=== PATIENT | female | born 1970 | race Caucasian/White ===

== ENCOUNTER 2016-11-18 18:10 | Emergency (ER) | payer OTHER ==
[~2016-11-18] VITALS: Ht 162.6 cm; Wt 116.2 kg
[~2016-11-18 18:10] MED LIST: CLR10 PO; HYDR12.56 PO; LISI-461 PO
[2016-11-18 18:13] VITALS: TEMP 36.9; Ht 162.6 cm; Wt 116.2 kg
[2016-11-18] MEDS ORDERED: PRVHFAIN INH (19:24)
[2016-11-18] MEDS ORDERED: ONDANSETRON INJ 2 MG/ML 2 ML VIAL IV STA (20:30)
[2016-11-18] MEDS ORDERED: SODIUM CHLORIDE 0.9% 1000ML 1,000 ML IV STA (20:30)
[2016-11-18 20:39] LABS: BASO % 0.1 %; BASO ABS # 0.01 K/uL (0-0.2); COMPLETE YES; EOS % 0.6 %; HEMATOCRIT 39.9 % (37-47); IG% 0.5 %; LYMPH ABS # 1.06 K/uL (1.2-3.4); MEAN CELL VOLUME 85.3 fL (80-100); MEAN CORPUSCULAR HEMOGLOBIN 28.8 pg (25-34); MEAN CORPUSCULAR HGB CONC 33.8 g/dl (32-36); MEAN PLATELET VOLUME 10.9 fL (7.4-10.4); MONO % 6.9 %; NEUT % 79.9 %; PLATELET COUNT 275 K/uL (130-400); RED BLOOD COUNT 4.68 M/uL (4.2-5.4); WHITE BLOOD COUNT 8.85 K/uL (4.8-10.8)
[2016-11-18 20:45] LABS: URINE APPEARANCE CLOUDY (CLEAR); URINE BILIRUBIN NEG (NEG); URINE COLOR DK YELLOW; URINE EPITHELIAL CELL AUTO >30 /lpf (0-5); URINE NITRITE NEG (NEG); URINE PH 6.5 (4.5-7.5); URINE SPECIFIC GRAVITY 1.027 (1.000-1.030); UROBILINOGEN NEG (NEG); ZZUR CULT IF INDIC CLEAN CATCH YES
[2016-11-18 20:46] LABS: PREG INTERNAL NEGATIVE QC NEG CLEAR BACKGROUND; PREG INTERNAL POSITIVE QC POS CONTROL LINE
[2016-11-18 20:47] LABS: MANUAL MICROSCOPIC REQUIRED? NO; REVIEW REQ? NO
[2016-11-18 21:11] LABS: BUN/CREATININE RATIO 24.9 (10-20); CALCIUM 8.4 mg/dl (8.5-10.1); CREATININE 0.74 mg/dl (0.60-1.20); POTASSIUM 3.3 mmol/L (3.5-5.1)
--- NOTE | 2016-11-18 21:41 | EMERGENCY ROOM VISIT NOTE ---
History Report prepared by Tereso: Flynn Mitchell Under the Supervision of: Dr. Corky Barrera D.O. First contact with patient: 19:10 Chief Complaint: DIZZY Stated Complaint: VOMITING, DIARRHEA, DIZZY Nursing Triage Summary: PT C/O VOMITING/DIARRHEA SINCE 0000 LAST NIGHT. PT VERBALIZES THE VOMITING/DIARRHEA STOPPED 3 HOURS AGO BUT NOW SHE FEELS LIGHTHEADED, DIZZY, AND HAS CRAMPING IN HER BACK. History of Present Illness The patient is a 46 year old female who presents to the Emergency Room with complaints of a persistent illness beginning yesterday. She notes she began feeling dizzy yesterday and began having vomiting and diarrhea around midnight. She notes she was vomiting about 1 time per hour, and that it has stopped about 5 hours ago. The patient reports having a headache, and abdominal and back pain which she describes as tight and achy. She notes having allergies and hypertension. She takes blood pressure medication daily. Source of History: patient Onset: yesterday Position: other (global) Quality: other (illness) Timing: other (persistent) Associated Symptoms: + abdominal pain, + back pain, + diarrhea, + vomiting Note: The patient reports having dizziness. Review of Systems See HPI for pertinent positives & negatives. A total of 10 systems reviewed and were otherwise negative. Past Medical & Surgical Medical Problems: (1) UTI (lower urinary tract infection) Family History No pertinent family history stated. Social History Smoking Status: Former Smoker Alcohol Use: none Drug Use: none Marital Status: Housing Status: lives with family Occupation Status: employed Current/Historical Medications Scheduled Hydrochlorothiazide (Hctz), 12.5 MG PO DAILY Lisinopril (Zestril), 10 MG PO DAILY Scheduled PRN Albuterol (Ventolin Hfa), 2 PUFFS INH UD PRN for SOB/Wheezing Allergies Coded Allergies: Dairy (Unverified Allergy, Unknown, UNKNOWN, 05/01/16) Yeast (Unverified Allergy, Unknown, UNKNOWN, 05/01/16) Yeast Extracts (Unverified Allergy, Unknown, UNKNOWN, 05/01/16) Physical Exam Vital Signs Date Time Temp Pulse Resp B/P Pulse Ox O2 Delivery O2 Flow Rate FiO2 11/18/16 20:27 93 11/18/16 20:17 92 18 124/66 99 Room Air 11/18/16 18:13 36.9 103 20 144/91 97 Room Air Physical Exam CONSTITUTIONAL/VITAL SIGNS: Reviewed / noted above. GENERAL: Non-toxic in appearance. INTEGUMENTARY: Warm, dry, and [place]. HEAD: Normocephalic. EYES: without scleral icterus or trauma. ENT/OROPHARYNX: clear and moist. LYMPHADENOPATHY/NECK: Is supple without lymphadenopathy or meningismus. RESPIRATORY: Lungs clear and equal. CARDIOVASCULAR: Regular rate and rhythm. GI/ABDOMEN: Soft and nontender. No organomegaly or pulsatile mass. No rebound or guarding. Normal bowel sounds. EXTREMITIES: Warm and well perfused. BACK: No CVA tenderness. NEUROLOGICAL: Intact without focal deficits. PSYCHIATRIC: normal affect. MUSCULOSKELETAL: Normally developed with good muscle tone. Medical Decision & Procedures Laboratory Results 11/18/16 19:55 Red Blood Count 4.68, Mean Corpuscular Volume 85.3, Mean Corpuscular Hemoglobin 28.8, Mean Corpuscular Hemoglobin Concent 33.8, Mean Platelet Volume 10.9, Neutrophils (%) (Auto) 79.9, Lymphocytes (%) (Auto) 12.0, Monocytes (%) (Auto) 6.9, Eosinophils (%) (Auto) 0.6, Basophils (%) (Auto) 0.1, Neutrophils # (Auto) 7.08, Lymphocytes # (Auto) 1.06, Monocytes # (Auto) 0.61, Eosinophils # (Auto) 0.05, Basophils # (Auto) 0.01 11/18/16 19:55 Test 11/18/16 19:55 11/18/16 20:00 White Blood Count 8.85 K/uL (4.8-10.8) Red Blood Count 4.68 M/uL (4.2-5.4) Hemoglobin 13.5 g/dL (12.0-16.0) Hematocrit 39.9 % (37-47) Mean Corpuscular Volume 85.3 fL (80-100) Mean Corpuscular Hemoglobin 28.8 pg (25-34) Mean Corpuscular Hemoglobin Concent 33.8 g/dl (32-36) Platelet Count 275 K/uL (130-400) Mean Platelet Volume 10.9 fL (7.4-10.4) Neutrophils (%) (Auto) 79.9 % Lymphocytes (%) (Auto) 12.0 % Monocytes (%) (Auto) 6.9 % Eosinophils (%) (Auto) 0.6 % Basophils (%) (Auto) 0.1 % Neutrophils # (Auto) 7.08 K/uL (1.4-6.5) Lymphocytes # (Auto) 1.06 K/uL (1.2-3.4) Monocytes # (Auto) 0.61 K/uL (0.11-0.59) Eosinophils # (Auto) 0.05 K/uL (0-0.5) Basophils # (Auto) 0.01 K/uL (0-0.2) RDW Standard Deviation 42.9 fL (36.4-46.3) RDW Coefficient of Variation 13.9 % (11.5-14.5) Immature Granulocyte % (Auto) 0.5 % Immature Granulocyte # (Auto) 0.04 K/uL (0.00-0.02) Anion Gap 11.0 mmol/L (3-11) Est Creatinine Clear Calc Drug Dose 119.0 ml/min Estimated GFR () 112.6 Estimated GFR (Non- 97.2 BUN/Creatinine Ratio 24.9 (10-20) Calcium Level 8.4 mg/dl (8.5-10.1) Total Bilirubin 0.9 mg/dl (0.2-1) Direct Bilirubin 0.2 mg/dl (0-0.2) Aspartate Amino Transf (AST/SGOT) 12 U/L (15-37) Alanine Aminotransferase (ALT/SGPT) 18 U/L (12-78) Alkaline Phosphatase 83 U/L (45-117) Total Protein 7.2 gm/dl (6.4-8.2) Albumin 3.6 gm/dl (3.4-5.0) Lipase 134 U/L (73-393) Urine Color DK YELLOW Urine Appearance CLOUDY (CLEAR) Urine pH 6.5 (4.5-7.5) Urine Specific [place] 1.027 (1.000-1.030) Urine Protein NEG (NEG) Urine Glucose (UA) NEG (NEG) Urine Ketones 1+ (NEG) Urine Occult Blood NEG (NEG) Urine Nitrite NEG (NEG) Urine Bilirubin NEG (NEG) Urine Urobilinogen NEG (NEG) Urine Leukocyte Esterase NEG (NEG) Urine WBC (Auto) 1-5 /hpf (0-5) Urine RBC (Auto) 0-4 /hpf (0-4) Urine Hyaline Casts (Auto) 1-5 /lpf (0-5) Urine Epithelial Cells (Auto) >30 /lpf (0-5) Urine Bacteria (Auto) 1+ (NEG) Urine Test NEG (NEG) Laboratory results as stated above per my review. Medications Administered Medications (Trade) Dose Ordered Sig/Michele Route Start Time Stop Time Status Last Admin Dose Admin Sodium Chloride (Nss 1000ml) 1,000 ml @ 999 mls/hr Q1H1M STAT IV 11/18/16 20:30 11/18/16 21:30 DC 11/18/16 20:30 999 MLS/HR Ondansetron HCl (Zofran Inj) 4 mg NOW STAT IV 11/18/16 20:30 11/18/16 20:33 DC 11/18/16 20:41 4 MG ED Course 2028: Previous medical records were reviewed. The patient was evaluated in room B3B. A complete history and physical examination was performed. 2029: Ordered Zofran Inj 4 mg IV, and NSS 1,000 ml @ 999 mls/hr IV. 2144: Ordered Ondansetron HCl 1 homepack PO. 2149: On reevaluation, the patient is hemodynamically stable. I discussed the results and findings with the patient. She verbalized agreement of the treatment plan. The patient was discharged home. Medical Decision Differential diagnosis: Etiologies such as gastroenteritis, food borne illness, infections, appendicitis , diverticulitis, inflammatory bowel disease, obstruction, GI bleed, biliary pathology, as well as others were entertained. This is a 46-year-old female who presents to the ED with a chief complaint of nausea, vomiting and diarrhea. She states that her nausea started yesterday. She began vomiting and having diarrhea around midnight. She states that she has had about once an hour. It started around 3 PM today. She felt a little lightheaded and came for evaluation of fluids. The patient was normal on exam. She was treated with IV fluids. Her vital signs are normal. She was treated with Zofran IV. CBC is normal. Potassium slightly low 3.3. Complete metabolic panel was unremarkable. Lipase is negative. Urine shows 1+ ketones. test was negative. The patient was told the results of the tests. sHe was felt to be stable for discharge and outpatient follow-up. She will be given Zofran home pack. Impression Primary Impression: Vomiting and diarrhea Additional Impression: Dehydration Scribe Attestation The scribe's documentation has been prepared under my direction and personally reviewed by me in its entirety. I confirm that the note above accurately reflects all work, treatment, procedures, and medical decision making performed by me. Departure Information Dispostion Home / Self-Care Referrals Samira Tolbert D.O. (PCP) Patient Instructions My [facility] Additional Instructions Zofran: Allow one tablet to dissolve under the tongue every 6 hours as needed for nausea or vomiting. Follow-up with your doctor for further care and evaluation in 1-2 days. Return to the emergency department for worsening or new symptoms or any concerns. You have been examined and treated today on an emergency basis only. This is not a substitute for, or an effort to provide, complete comprehensive medical care. It is impossible to recognize and treat all injuries or illnesses in a single emergency department visit. It is therefore important that you follow up closely with your doctor. Call as soon as possible for an appointment. Problem Qualifiers
[2016-11-18] MEDS ORDERED: ONDANSETRON HOME PACK 4MG OD TAB PO ONE (21:45)
[2016-11-18] MEDS ORDERED: ONDANSETRON INJ 2 MG/ML 2 ML VIAL ONE (22:34)
[2016-11-18 23:11] VITALS: BP 120/77; PULSE 88; O2SAT 100
[2017-01-04] MEDS ORDERED: LANS15CA6 PO (15:53)
== END 2016-11-18 23:12 | disposition home or self-care (01) ==
LOC: C.EDB 18:10
DX: R11.2 Nausea with vomiting, unspecified (principal); R19.7 Diarrhea, unspecified; E86.0 Dehydration; I10 Essential (primary) hypertension; Z87.891 Personal history of nicotine dependence

== ENCOUNTER → 2017-01-04 | Outpatient (CLI) | payer OTHER ==
[~2017-01-04] MED LIST changes: -CLR10 PO; +KETO10TA PO; +LANS15CA6 PO; +OXYC-57 PO; +PRVHFAIN INH
[2017-01-04 15:33] LABS: BASO % 0.3 %; BASO ABS # 0.02 K/uL (0-0.2); COMPLETE YES; EOS % 2.7 %; HEMATOCRIT 40.5 % (37-47); IG% 0.1 %; LYMPH ABS # 2.01 K/uL (1.2-3.4); MEAN CELL VOLUME 84.7 fL (80-100); MEAN CORPUSCULAR HEMOGLOBIN 28.9 pg (25-34); MEAN CORPUSCULAR HGB CONC 34.1 g/dl (32-36); MEAN PLATELET VOLUME 11.2 fL (7.4-10.4); MONO % 5.8 %; NEUT % 65.1 %; PLATELET COUNT 293 K/uL (130-400); RED BLOOD COUNT 4.78 M/uL (4.2-5.4); WHITE BLOOD COUNT 7.74 K/uL (4.8-10.8)
[2017-01-04 16:11] LABS: BLOOD UREA NITROGEN 15 mg/dl (7-18); CALCIUM 8.7 mg/dl (8.5-10.1); CARBON DIOXIDE 28 mmol/L (21-32); CHLORIDE 105 mmol/L (98-107); CREATININE 0.69 mg/dl (0.60-1.20); GLUCOSE 94 mg/dl (70-99); POTASSIUM 3.6 mmol/L (3.5-5.1); SODIUM 141 mmol/L (136-145)
== END | disposition home or self-care (01) ==
LOC: C.CPL 14:12
PROVIDERS: ATTEND Orthopaedic Surgery
DX: Z01.810 Encounter for preprocedural cardiovascular examination (principal); Z01.812 Encounter for preprocedural laboratory examination; M25.512 Pain in left shoulder

== ENCOUNTER 2017-01-06 10:42 | Day surgery (SDC) | payer OTHER ==
[2017-01-04 15:54] VITALS: BMI 43.0
--- NOTE | 2017-01-04 17:19 | HISTORY & PHYSICAL EXAMINATION ---
DATE OF ADMISSION: 01/06/2017 CHIEF COMPLAINT: Left rotator cuff tear. HISTORY OF PRESENT ILLNESS: Christie is a 46-year-old female who has been having a year and a half history of left shoulder pain. MRI and clinical examination were diagnostic for small to medium sized rotator cuff tear. After failing extensive conservative treatment including several injections and physical therapy she has elected to proceed with a left shoulder arthroscopy. PAST MEDICAL HISTORY: Significant for obesity and hypertension. MEDICATIONS: None. PAST SURGICAL HISTORY: Significant for bladder repair. ALLERGIES: None. FAMILY HISTORY: Noncontributory. SOCIAL HISTORY: The patient is , 2 children, rarely drinks, moderately active. REVIEW OF SYSTEMS: The patient complains of left shoulder pain. All other pertinent review of systems are negative. PHYSICAL EXAMINATION: GENERAL: She is awake, alert and oriented x3. She is in no apparent distress. She is very pleasant. HEAD, EYES, EARS, NOSE, AND THROAT: Pupils equal, round and reactive to light. Extraocular movements intact. Normal mucosa pink and moist. HEART: Regular rate per radial pulse. LUNGS: Jaja symmetrically bilaterally with no audible breath sounds. ABDOMEN: Soft, nontender, nondistended. MUSCULOSKELETAL: On physical examination of her shoulder, she has full range of motion, 3/5 muscle strength. She has significant tenderness to palpation over the subacromial space. Moderate pain over the AC joint. Very positive Neer and Figueroa impingement signs. IMAGING DATA: MRI of the shoulder does show a very high-grade bursal sided tearing of the far anterior supraspinatus and signs of external impingement. The humeral head is located within the glenoid as there are no signs of glenohumeral arthritis. There is some AC joint arthritis. IMPRESSION: Severe external impingement of the left shoulder with bursal sided rotator cuff tear and AC joint arthritis. PLAN: Will proceed with a shoulder arthroscopy to include a decompression, distal clavicle resection, biceps tenotomy and possible bursal side rotator cuff repair. She understands all the risks, benefits, alternatives to the procedure and elected to proceed. Postoperatively, she will be placed on oral pain medications and discharged to home.
[~2017-01-06] VITALS: Ht 162.6 cm; Wt 113.6 kg
--- NOTE | 2017-01-06 09:53 | History & Physical Bridge Note ---
H&P Re-Evaluation Bridge Note: I have examined the patient, reviewed the History & Physical and in the interval since the performance of the History & Physical I have noted the following changes of clinical significance: No changes noted
[~2017-01-06 10:42] MED LIST changes: +ACETAMINOPHEN 500 MG TAB PO SCH; +CEFAZOLIN 2000 MG/60 ML D5W 60 ML IV SCH; +FAMOTIDINE 20 MG TAB PO SCH; +FENTANYL CITRATE INJ 50 MCG/1 ML 2 ML VIAL ONE; +GABAPENTIN 300 MG CAP PO SCH; -KETO10TA PO; +LACTATED RINGER'S 1000ML 1,000 ML IV SCH; +LACTATED RINGER'S 1000ML IV SCH; +MIDAZOLAM HCL 1 MG/ML 2ML VIAL ONE; -OXYC-57 PO; +ROPIVACAINE 0.5% 5 MG/ML 30 ML VIAL ONE
[2017-01-06 11:06] VITALS: BP 156/96; PULSE 104; TEMP 36.9; O2SAT 95; Ht 162.6 cm; Wt 113.6 kg
[2017-01-06] MEDS ORDERED: BACITRACIN 50000 UNIT VIAL ONE (11:54)
[2017-01-06] MEDS ORDERED: ORTHO JOINT ANESTHETIC ONE (11:54)
[2017-01-06] MEDS ORDERED: DEXAMETHASONE SOD INJ 4 MG/ML VIAL ONE (12:49)
[2017-01-06] MEDS ORDERED: PROPOFOL IV EMULSION 10 MG/ML 20 ML VIAL IV ONE (12:49)
[2017-01-06] MEDS ORDERED: ONDANSETRON INJ 2 MG/ML 2 ML VIAL ONE (12:49)
[2017-01-06] MEDS ORDERED: PHENYLEPHRINE HCL INJ 10 MG/ML VIAL ONE (12:49)
[2017-01-06] MEDS ORDERED: ATROPINE SULFATE 0.1 MG/ML 5ML SYR IV PRN (13:15)
[2017-01-06] MEDS ORDERED: EpHEDrine SULFATE INJ 50 MG/ML AMP IV PRN (13:15)
[2017-01-06] MEDS ORDERED: ONDANSETRON INJ 2 MG/ML 2 ML VIAL IV PRN ×2 (13:15→13:45)
--- NOTE | 2017-01-06 13:24 | [facility] Post Operative Brief Note ---
Immediate Operative Summary Operative Date Jan 06, 2017. Pre-Operative Diagnosis Left shoulder rotator cuff tendon inflammation Post-Operative Diagnosis Left shoulder rotator cuff tendon inflammation Procedure(s) Performed Left shoulder arthroscopy subacromial decompression distal clavicle resection small rotator cuff repair Surgeon Dr. Flynn Stafford [employer] Aide Surgeon(s) Nelson Cotton PA-C Estimated Blood Loss 1cc Findings as above Specimens none Complication(s) None Disposition Recovery Room / PACU
[2017-01-06] MEDS ORDERED: OXYC-57 PO (13:34)
[2017-01-06] MEDS ORDERED: KETO10TA PO (13:34)
[2017-01-06] MEDS: FENTANYL CITRATE INJ 50 MCG/1 ML 2 ML VIAL IV PRN ×2 (13:42→13:50)
[2017-01-06] MEDS ORDERED: SODIUM CHLORIDE 0.9% 1000ML 1,000 ML IV SCH (13:43)
--- NOTE | 2017-01-06 13:43 | Discharge Instructions ---
Discharge Instructions Date of Service Jan 06, 2017. Admission Reason for Admission: Left Shoulder Rotator Cuff Tendon Inflammation Discharge Discharge Diagnosis / Problem: SAME ABOVE Discharge Goals Goal(s): Decrease discomfort Activity Recommendations Activity Limitations: as noted below Lifting Limitations: gradually increase as tolerated Exercise/Sports Limitations: gradually increase as tolerated Shower/Bathe: tomorrow . Instructions / Follow-Up Instructions / Follow-Up MEDICATIONS: * Resume previous medications unless instructed otherwise by your surgeon. * Always take pain medication on a full stomach or with food to avoid upset stomach. * Do not drink alcohol or drive while taking narcotics. * Ibuprofen or Tylenol may be taken if narcotic not needed. SPECIAL CARE INSTRUCTIONS: __ None _X_ Keep extremity elevated and iced x 48 hours; apply ice 20-30 minutes 8-10 times/day. May remove at night. _X_ Sling (WEAR NEEDED FOR COMFORT) __24 hrs/day __ Remove at night __ Shoulder Immobilizer __ 24 hrs/day __ Remove at night _X_ Dressing __ Maintain until seen in office, may shower with plastic over site _X_ Remove dressings in 24-48 hours and then may shower _X_ Cover incisions with band-aids after showering __ Do not remove steri-strips Call physician if chills or temperature rises above 102 degrees or pain unrelieved by prescribed pain medications at . . Current Hospital Diet Patient's current hospital diet: Discharge Diet Recommended Diet: Regular Diet Fluid Restriction: None Procedures Procedures Performed: Left shoulder arthroscopy subacromial decompression distal clavicle resection small rotator cuff repair Pending Studies Studies pending at discharge: no Work Instructions Return To Work: after follow-up Lifting Limitations: INCREASE TOLERATED Medical Emergencies . Who to Call and When: Medical Emergencies: If at any time you feel your situation is an emergency, please call 911 immediately. . Non-Emergent Contact Non-Emergency issues call your: Primary Care Provider Call Non-Emergent contact if: you have a fever, temperature is above 101.5 . "Provider Documentation" section prepared by Nelson Cotton. VTE Core Measure Inpt VTE Proph given/why not?: Treatment not indicated
[2017-01-06] MEDS ORDERED: OXYCODONE/ACETAMINOPHEN 5-325 TAB PO PRN ×2 (13:45)
[2017-01-06 14:20] VITALS: BP 146/93; PULSE 89; TEMP 36; O2SAT 93
--- NOTE | 2017-01-06 14:40 | OPERATIVE REPORT ---
DATE OF OPERATION: 01/06/2017 PREOPERATIVE DIAGNOSES: Severe external impingement and possible bursal cuff tear of the left shoulder. POSTOPERATIVE DIAGNOSES: Severe external impingement with bursal sided rotator cuff tear and acromioclavicular joint arthritis of the left shoulder. PROCEDURES: Left shoulder diagnostic arthroscopy with limited debridement, distal clavicle resection, acromioplasty and small degenerative rotator cuff repair. SURGEON: Dr. Flynn Stafford. CASTING TRUCKER: Stefano Cotton PA-C, whose assistance was necessary for positioning of the arm and helping with arthroscopic instrumentation. ANESTHESIA: General with left interscalene nerve block. COMPLICATIONS: None. CONDITION: Stable to PACU. INDICATIONS: Christie is a pleasant 46-year-old female who presented to my office with complaints of left shoulder pain. MRI and clinical examination were diagnostic for severe external impingement with small possible bursal sided cuff tear. After failing conservative treatment, she elected to undergo arthroscopy. OPERATION AND FINDINGS: On 01/06/2017, she arrived at [facility] for the above procedure. She was seen in the preoperative holding area and the operative extremity was identified and signed. She was given a preoperative antibiotic and a left interscalene nerve block. She was taken back to the operating room, laid on the table in supine position and put under general anesthesia. She was then put into the beachchair position. The left shoulder was prepped and draped in sterile fashion. Time-out was done and the patient and operative extremity was properly identified. A scope was introduced in the posterior portal. Diagnostic arthroscopy showed no cartilage damage to the humeral head or the glenoid. There was a little fraying of the anterior labrum. The biceps looked good and went through a normal size biceps dean mechanism. The supraspinatus, infraspinatus, teres minor and subscapularis were all checked and intact. An anterior portal was made. A shaver was used to do a limited debridement of the intraarticular structures. The biceps tendon was pulled into the joint and I saw no further pathology. The scope was then put into the subacromial space. A lateral portal was made. A shaver was used to do a complete subacromial and subdeltoid bursectomy. An ablator was used to tease the coracoacromial ligament off the undersurface of the acromion and a 5-0 alexia was used to complete an acromioplasty of a very large Bigliani type 3 acromion. A shaver was used to remove any excess debris and attention was turned to the bursal side of the rotator cuff. There was a bursal-sided tear involving about 70% of the footprint. An additional anterolateral portal was made and Piedad cannula was placed. Tuberosity was prepared with a ring curette. The rotator cuff was then fixed with an Arthrex modified SpeedBridge configuration using two 4.75-mm BioComposite SwiveLock suture anchors using FiberTape. This gave a nice repair. Pictures were taken. Attention was then turned to the distal clavicle. Through the anterior portal, a shaver and ablator were used to skeletonize the distal clavicle. A 5-0 alexia was then used to resect the distal 7 mm from the clavicle. Complete resection was checked under direct visualization. A shaver was used to remove any excess debris, no additional pathology was identified. Arthroscopic instruments were removed from the shoulder. Portal sites were closed with 3-0 nylon. She was then placed in a soft dressing and a regular arm sling. She was then extubated, transferred to a [facility] and taken to the postanesthesia care unit in stable condition. She tolerated the procedure well. I attest to the content of the Intraoperative Record and any orders documented therein. Any exceptio ns are noted below.
[2017-01-06 14:50] VITALS: BP 142/80; PULSE 90; O2SAT 96
--- NOTE | 2017-01-06 15:02 | Anesthesiology Progress Note ---
Anesthesia Post Op Note Date & Time Jan 06, 2017 at 15:02 Vital Signs Pain Intensity: 0 Vital Signs Past 12 Hours Date Time Temp Pulse Resp B/P Pulse Ox O2 Delivery O2 Flow Rate FiO2 01/06/17 14:20 36 89 16 146/93 93 Room Air 01/06/17 14:10 36.4 90 22 139/83 94 Room Air 01/06/17 14:00 87 16 147/96 94 Room Air 01/06/17 13:50 78 19 130/96 100 Mask 10 01/06/17 13:40 79 21 150/91 100 Mask 10 01/06/17 13:34 36.4 78 17 143/85 100 Mask 10 01/06/17 11:06 36.9 104 20 156/96 95 Room Air Notes Mental Status: alert / awake / arousable, participated in evaluation Pt Amnestic to Procedure: Yes Nausea / Vomiting: adequately controlled Pain: adequately controlled Airway Patency, RR, SpO2: stable & adequate BP & HR: stable & adequate Hydration State: stable & adequate Anesthetic Complications: no major complications apparent
[2017-01-06 15:13] VITALS: BP 155/80; PULSE 96; TEMP 36.4; O2SAT 95
== END 2017-01-06 15:15 | disposition home or self-care (01) ==
LOC: C.ACU 10:42
PROVIDERS: ATTEND Orthopaedic Surgery
DX: M75.102 Unspecified rotator cuff tear or rupture of left shoulder, not specified as traumatic (principal); M75.42 Impingement syndrome of left shoulder; M19.012 Primary osteoarthritis, left shoulder; E66.9 Obesity, unspecified; I10 Essential (primary) hypertension

== ENCOUNTER 2019-06-07 05:44 | Observation (INO) ==
--- NOTE | 2019-05-24 10:07 | PAT Medication Instructions ---
Medication Instructions Date of Service May 24, 2019 Home Medications hydrochlorothiazide 12.5 mg PO QAM lisinopril 10 mg PO QAM loratadine 10 mg PO QAM omeprazole 20 mg PO QAM DO NOT take the morning of surgery hydrochlorothiazide 12.5 mg PO QAM lisinopril 10 mg PO QAM loratadine 10 mg PO QAM Take morning of surgery With a small sip of water, OTHERWISE NOTHING TO EAT OR DRINK AFTER MIDNIGHT: omeprazole 20 mg PO QAM Other Notes If you have any questions please call us at [phone] or [phone] or or [phone]
--- NOTE | 2019-05-27 10:50 | Anesthesiology Consultation ---
Date of Service May 27, 2019 Assessment & Plan (1) Encounter for pre-operative examination: - Check test AM DOS Chart Review Chart Review: Acceptable Risk for Surgery and Patient seen in Pre Admission Phuong blackmon Teaching & Discussion Pre-Anesthesia Teaching/Discussion Notes: Instructed NPO after midnight before surgery,except medications with 15 cc of water. Medication instructions provided according to the PAT guidelines. History Surgery Operation Date: 06/07/19 07:00 Proposed Procedures p Evaluation Under Anesthesia, Laparoscopic Hysterectomy, Bilateral Salpingectomy, Cystoscopy, Possible Laparotomy - Lucita Cesar MD Height/Weight Height: 5 ft 3 in Weight: 123.6 kg Allergies Allergy/AdvReac Type Severity Reaction Status Date / Time milk Allergy Mild bloating Verified 05/21/19 10:21 Milk Containing Products Allergy Mild cough, Verified 05/24/19 10:06 excess mucus No Known Drug Allergies Allergy Mild . Verified 05/21/19 10:21 Yeast Allergy Mild cough, Verified 05/24/19 10:06 excess mucus Medications Home Medications Medication Instructions Recorded Confirmed Last Taken hydrochlorothiazide 12.5 mg PO QAM 03/06/19 05/21/19 Unknown lisinopril 10 mg PO QAM 03/06/19 05/21/19 Unknown loratadine 10 mg PO QAM 05/21/19 05/21/19 Unknown omeprazole 20 mg PO QAM 05/21/19 05/21/19 Unknown Past Medical History Medical History Acid reflux controlled Chronic back pain Degenerative disc disease Hypertension Ovarian cyst Pelvic pain Uterine fibroid Exercise / Class Metabolic Activity III < 4 Walking/Shop/Light housework Past Family History Family History Brother Family history of diabetes mellitus Father Family history of diabetes mellitus Mother Family history of diabetes mellitus Past Surgical History Surgical History H/O shoulder surgery Lt History of bladder repair surgery History of incision and drainage as an infant "cyst in my neck" Past Anesthesia History No Hx of Anesthesia Complications and No Family Hx of Anesthesia Complications History of PONV No Hx of PONV and No Hx of Motion Sickness Social History Smoking Status: Former smoker Do You Dip or Chew Tobacco: No Smoking End Date: Quit 16 years ago Hx Alcohol Use: Yes Alcohol type: wine and hard liquor alcohol intake frequency: a few times a week Hx Substance Use: No substance use type: does not use Review of Systems Reflux controlled. Patient denies chest pain, shortness of breath, cough, wheezing, palpitations. Physical Exam Vital Signs VITALS BP 130/83 P 79 TEMP 98.0 SP02 96%RA RESP 18 PHYSICAL Full neck and c-spine range of motion. Full TMJ range of motion. TMD 3.5 finger breaths Mallampati Score 1 Dentition: intact Lungs: clear throughout to auscultation Cardiac: regular rate and rhythm, no murmurs noted Spine: normal Carotid arteries: negative bruit Extremities: no edema Testing Laboratory Results 05/27/19 11:04 05/27/19 11:04 PT 10.1 Seconds (9.0-12.0) 05/27/19 11:04 INR 1.0 (0.9-1.1) 05/27/19 11:04 APTT 26.3 Seconds (21.0-31.0) 05/27/19 11:04 Blood Type O Positive 05/27/19 11:04 Antibody Screen NEGATIVE 05/27/19 11:04 Electrocardiogram Date: 05/27/19 Findings: + NSR @ (36)
[2019-05-27 11:42] LABS: Basophils # (auto) 0.01 K/uL (0-0.2); Basophils % (auto) 0.2 %; Eosinophils # (auto) 0.14 K/uL (0-0.5); Eosinophils % (auto) 2.2 %; Hematocrit (blood only) 36.9 % (37-47); Hemoglobin 12.2 g/dL (12.0-16.0); Immature Granulocytes # (auto) 0.01 K/uL (0.00-0.02); Immature Granulocytes % (auto) 0.2 %; Lymphocytes # (auto) 1.94 K/uL (1.2-3.4); Lymphocytes % (auto) 29.9 %; Mean Corpuscular Hgb Conc 33.1 g/dL (32-36); Mean Corpuscular Volume 85.2 fL (80-100); Mean Platelet Volume 11.9 fL (7.4-10.4); Monocytes # (auto) 0.44 K/uL (0.11-0.59); Monocytes % (auto) 6.8 %; Neutrophils # (auto) 3.94 K/uL (1.4-6.5); Neutrophils % (auto) 60.7 %; Platelet Count 237 K/uL (130-400); RDW Coefficient of Variation 14.1 % (11.5-14.5); RDW Standard Deviation 44.2 fL (36.4-46.3); Red Blood Count 4.33 M/uL (4.2-5.4); White Blood Count 6.48 K/uL (4.8-10.8)
[2019-05-27 11:49] LABS: Calcium 8.4 mg/dl (8.5-10.1); Creatinine Clr Calc Pharmacy 129.7 ml/min; Est GFR (African American) 119.6; Est GFR (Non-African American) 103.2; Potassium 3.9 mmol/L (3.5-5.1)
[2019-05-27 12:02] LABS: Partial Thromboplastin Time 26.3 Seconds (21.0-31.0); Prothrombin Time 10.1 Seconds (9.0-12.0)
[2019-06-07] MEDS ORDERED: SODIUM CHLORIDE 0.9% 1000ML 1,000 ML IV SCH (06:00)
[2019-06-07] MEDS ORDERED: LR 15ML/HR IV SCH (06:00)
[2019-06-07] MEDS ORDERED: CEFAZOLIN 3000MG 65 ML IV SCH (06:00)
[2019-06-07 06:09] LABS: Basophils # (auto) 0.02 K/uL (0-0.2); Basophils % (auto) 0.3 %; Eosinophils # (auto) 0.21 K/uL (0-0.5); Eosinophils % (auto) 2.7 %; Hematocrit (blood only) 39.4 % (37-47); Hemoglobin 13.3 g/dL (12.0-16.0); Immature Granulocytes # (auto) 0.03 K/uL (0.00-0.02); Immature Granulocytes % (auto) 0.4 %; Lymphocytes # (auto) 2.21 K/uL (1.2-3.4); Lymphocytes % (auto) 28.4 %; Mean Corpuscular Volume 85.7 fL (80-100); Mean Platelet Volume 11.8 fL (7.4-10.4); Monocytes # (auto) 0.54 K/uL (0.11-0.59); Monocytes % (auto) 6.9 %; Neutrophils # (auto) 4.77 K/uL (1.4-6.5); Neutrophils % (auto) 61.3 %; Platelet Count 269 K/uL (130-400); RDW Coefficient of Variation 14.2 % (11.5-14.5); RDW Standard Deviation 44.5 fL (36.4-46.3); White Blood Count 7.78 K/uL (4.8-10.8)
[2019-06-07 06:16] LABS: Mean Corpuscular Hgb Conc 33.8 g/dL (32-36)
[2019-06-07] MEDS ORDERED: BUPIVACAINE 0.5 % 5 MG/1 ML MPF 30ML VIAL ONE (06:34)
[2019-06-07] MEDS ORDERED: MINERAL OIL LIGHT 10 ML BTL ONE (06:35)
[2019-06-07] MEDS ORDERED: METHYLENE BLUE 0.5% 10 ML VIAL ONE (06:35)
[2019-06-07] MEDS ORDERED: DEXAMETHASONE SOD INJ 4 MG/ML VIAL ONE (06:46)
[2019-06-07] MEDS ORDERED: fentaNYL citrate 100 MCG/2 ML VIAL ONE ×2 (06:46→09:16)
[2019-06-07] MEDS ORDERED: MIDAZOLAM HCL 1 MG/ML 2ML VIAL ONE (06:46)
[2019-06-07] MEDS ORDERED: NEOSTIGMINE METHYLSULFATE 5 MG/5 ML SYR ONE (06:46)
[2019-06-07] MEDS ORDERED: LIDOCAINE HCL 2% 2 ML VIAL/AMP(20MG/ML) INFIL ONE (06:46)
[2019-06-07] MEDS ORDERED: GLYCOPYRROLATE 0.2 MG/ML VIAL ONE (06:46)
[2019-06-07] MEDS ORDERED: ROCURONIUM BROMIDE 10 MG/ML 5 ML VIAL ONE ×3 (06:46→08:48)
[2019-06-07] MEDS ORDERED: PROPOFOL IV EMULSION 10 MG/ML 20 ML VIAL IV ONE (06:46)
[2019-06-07] MEDS ORDERED: LARYING-O-JET KIT (LTA) ONE (06:46)
[2019-06-07] MEDS ORDERED: ONDANSETRON INJ 2 MG/ML 2 ML VIAL IV PRN ×2 (06:49→11:13)
[2019-06-07] MEDS ORDERED: ePHEDrine sulfate 50 MG/ML AMP IV PRN (06:49)
[2019-06-07] MEDS ORDERED: ATROPINE SULFATE 0.1 MG/ML 10ML SYR IV PRN (06:49)
--- NOTE | 2019-06-07 06:51 | History & Physical Bridge Note ---
Date of Service June 07, 2019 History & Physical Bridge Note I have examined the patient, reviewed the History & Physical and in the interval since the performance of the History & Physical I have noted the following changes of clinical significance: no changes noted
[2019-06-07] MEDS ORDERED: ACETAMINOPHEN 1000 MG/100 ML IV IV ONE (07:02)
[2019-06-07] MEDS ORDERED: FLOSEAL HEMOSTATIC MATRIX 10ML TOP ONE (09:46)
[2019-06-07] MEDS ORDERED: KETOROLAC 30 MG/ML VIAL ONE (10:42)
--- NOTE | 2019-06-07 10:48 | Post Operative Brief Note ---
Immediate Post Op Note v1 Date of Surgery June 07, 2019 Pre & Post Diagnosis Operation Date: 06/07/19 07:00 Pre-Op Diagnosis: Fibroids, Suberous, Pelvic Pain, Irregular Menses Post-Op Diagnosis: Fibroids, Suberous, Pelvic Pain, Irregular Menses Procedure Operation Date: 06/07/19 07:00 Actual Procedures p Evaluation Under Anesthesia, Laparoscopic Hysterectomy, Bilateral Salpingo- oophorectomy, Lysis of adhesions, Cystoscopy,(Not Applicable) - Lucita Segal MD s Possible Laparotomy(Not Applicable) - Lucita Cesar MD Surgeon Lucita Cesar MD Cartography Teacher Dr. Damon and AMEENA Deutsch Estimated Blood Loss 100 Findings Consistent with Post-Op Diagnosis Drains Traore Catheter Anesthesia Type General Complications none Disposition Accompanied Patient To Recovery: Yes Disposition: Recovery Room Overlapping Procedure I was present for: the critical portions of procedure. (I WAS PRESENT FOR THE ENTIRE CASE)
[2019-06-07] MEDS: HYDROmorphone INJ 2 MG/ML SYR/VIAL IV PRN ×3 (11:10→11:27)
[2019-06-07] MEDS ORDERED: KETOROLAC TROMETHAMINE 15 MG/ML VIAL IM PRN (11:13)
[2019-06-07] MEDS ORDERED: METOCLOPRAMIDE HCL INJ 5 MG/ML 2 ML VIAL IV PRN (11:13)
[2019-06-07] MEDS ORDERED: OXYCODONE/ACETAMINOPHEN 5mg/325mg TAB PO PRN (11:13)
[2019-06-07] MEDS ORDERED: ACETAMINOPHEN 325 MG TAB PO PRN (11:20)
[2019-06-07] MEDS ORDERED: LACTATED RINGER'S 1,000 ML IV SCH (11:30)
--- NOTE | 2019-06-07 11:48 | Anesthesiology Progress Note ---
Date of Service June 07, 2019 Anesthesia Post Procedure Vital Signs Vital Signs: Temp Pulse Pulse Resp BP BP Pulse Ox 06/07/19 11:41 36.4 C L 66 14 118/67 95 06/07/19 11:25 73 14 108/69 96 06/07/19 11:15 71 14 116/63 100 06/07/19 11:05 65 16 123/70 100 06/07/19 10:55 36.2 C L 77 16 124/73 100 06/07/19 05:58 36.7 C 88 18 161/85 H 98 Pain Intensity Lower Abdomen: Pain Intensity: 5 Transfer of Care Handoff Completed per policy Notes Mental Status: alert / awake / arousable Patient Amnestic to Procedure: Yes Nausea / Vomiting: adequately controlled Pain: adequately controlled Airway Patency, RR, SpO2: stable & adequate BP & HR: stable & adequate Hydration State: stable & adequate Anesthetic Complications: no major complications apparent and Pt Satisfied with anesthetic care
[2019-06-07] MEDS: SIMETHICONE 80 MG CHEW PO SCH ×3 (14:36→23:19)
[2019-06-07] MEDS: IBUPROFEN 600 MG TAB PO PRN ×2 (16:01→22:15)
[2019-06-07] MEDS: OXYCODONE/ACETAMINOPHEN 5mg/325mg TAB PO PRN ×2 (16:01→22:15)
[2019-06-07] MEDS ORDERED: CEFAZOLIN 3000MG/72.5 ML BAG IV STA (19:31)
[2019-06-07] MEDS: DOCUSATE SODIUM 100 MG CAP PO SCH (19:45)
--- NOTE | 2019-06-07 20:00 | Obstetrical Progress Note ---
Date of Service June 07, 2019 Subjective Postop check Patient is seen and examined Feels well, no complaints other than itchy and watery eyes She has h/o allergies and used Loratadine and eye lubricants Pain is under control with meds No CP/ SOB/ Dizziness/ N&V/ VB/ Leg pain OOB to hallway Tolerating clears Explained about the surgery and findings Shown her pictures from [facility] Vital Signs Temp Pulse Pulse Resp BP Pulse Ox 06/08/19 08:15 36.7 C 82 16 105/71 95 06/08/19 03:55 36.6 C 91 H 16 99/65 L 93 06/07/19 23:10 36.7 C 96 H 18 102/65 95 06/07/19 19:40 36.9 C 98 H 16 107/69 94 06/07/19 16:05 36.7 C 75 18 122/81 99 06/07/19 14:00 36.5 C 84 16 123/80 99 06/07/19 13:00 36.4 C L 78 16 116/72 97 06/07/19 12:35 36.5 C 77 16 114/72 95 06/07/19 12:15 36.7 C 67 16 117/71 06/07/19 11:45 75 12 124/67 100 06/07/19 11:41 36.4 C L 66 14 118/67 95 06/07/19 11:25 73 14 108/69 96 06/07/19 11:15 71 14 116/63 100 06/07/19 11:05 65 16 123/70 100 06/07/19 10:55 36.2 C L 77 16 124/73 100 Intake and Output 06/07/19 06/08/19 06/08/19 22:59 06:59 14:59 Intake Total 72.5 / 2710.0 637.5 / 2710.0 Output Total 45 / 1305 850 / 1305 125 / 125 Balance 27.5 / 1405.0 -212.5 / 1405.0 -125 / -125 Intake: IV 72.5 / 310.0 137.5 / 310.0 Ancef 3,000 mg In D5w 50 ml @ 72.5 / 145.0 72.5 / 145.0 130 mls/hr IV Q8H [facility] Rx#: [id number] Ancef 3000MG 65 ml @ 130 mls/hr 65 / 65 IV PREOP [facility] Rx#:[id number] Oral 500 / 500 Output: Urine 125 / 125 Urine Amount (Catheter) 1204 / 120 Anderson/Indwelling 1204 120 PE: General: Alert, orientedx3, NAD CVS: S1S2 RRR Lungs: CTAB Abd: soft, NT, ND, BS+, Incisions C/D/I No VB Ext: NT, no edema, SCD's on AP: 49 yo female s/p EUA, TLH, PEPE, BSO, Cystoscopy , pod#0 VSS Afebrile doing well Continue to routine postop care Encourage PO intake, may ambulate D/C anderson in am Results & Data Vital Signs (Past 12 Hours) Vital Signs Temp Pulse Pulse Resp BP Pulse Ox 06/07/19 16:05 36.7 C 75 18 122/81 99 06/07/19 14:00 36.5 C 84 16 123/80 99 06/07/19 13:00 36.4 C L 78 16 116/72 97 06/07/19 12:35 36.5 C 77 16 114/72 95 06/07/19 12:15 36.7 C 67 16 117/71 06/07/19 11:45 75 12 124/67 100 06/07/19 11:41 36.4 C L 66 14 118/67 95 06/07/19 11:25 73 14 108/69 96 06/07/19 11:15 71 14 116/63 100 06/07/19 11:05 65 16 123/70 100 06/07/19 10:55 36.2 C L 77 16 124/73 100
[2019-06-07] MEDS: CEFAZOLIN 3,000 MG in DEXTROSE 5% 50 ML IV SCH (20:02)
[2019-06-07] MEDS ORDERED: ARTIFICIAL TEARS OP OINT 3.5 GM TUBE OP ONE (20:15)
[2019-06-07] MEDS ORDERED: LORATADINE 10 MG TAB PO ONE (20:15)
--- NOTE | 2019-06-07 21:58 | Operative Report ---
DATE OF OPERATION: 06/07/2019 PREOPERATIVE DIAGNOSES: The patient is a 49-year-old 2, para 2-0-0-2 perimenopausal female with enlarged large fibroid uterus, pelvic pain and desires definitive surgery/ hysterectomy. POSTOPERATIVE DIAGNOSES: The patient is a 49-year-old 2, para 2-0-0-2 perimenopausal female with enlarged large fibroid uterus, pelvic pain and desires definitive surgery, hysterectomy, and adhesions of omentum into the abdominal wall and adhesions in the cul-de-sac between the right ovary, pelvic peritoneum and sigmoid. PROCEDURE: Exam under anesthesia, laparoscopic total hysterectomy with bilateral salpingo-oophorectomy, lysis of adhesions, cystoscopy. SURGEON: Lucita Cesar MD. ASSISTANTS: Zeynep Damon MD and AMEENA Deutsch. ESTIMATED BLOOD LOSS: 100 mL. DRAINS: Traore catheter drained 300 mL of clear urine. FLUIDS: 1500 mL of lactated Ringer. ANESTHESIA: General endotracheal. COMPLICATIONS: None. FINDINGS: Exam under anesthesia revealed anteverted 10-week size uterus, nonpalpable adnexa. INTRAOPERATIVE FINDINGS: Uterus was in the midline with normal size. There was a large irregular-shaped pedunculated fibroids on top of the fundus and it was about 10 x 5 x 5 cm and a normal left ovary and fallopian tube and normal right fallopian tube, and there was adhesion and a hemorrhagic cyst on the right ovary and adhesions of omentum to the anterior abdominal wall and some of the filmy adhesions in the posterior cul-de-sac. DESCRIPTION OF PROCEDURE: The patient was taken to the operating room where general anesthesia was given without difficulty. She was placed in dorsal lithotomy position, prepared and draped in usual sterile fashion. A Traore catheter was inserted to drainage during surgery and examination under anesthesia was done with above findings and then a Olson speculum was placed in the patient's vagina. Cervix was visualized, grasped with single tooth tenaculum. Uterus was measured to be 9 cm and then a large-sized VCare was placed in the patient's uterus to provide manipulation. The green cup of the VCare was sutured back onto the cervix and then it was placed over the cervix and then the blue cap over it was locked. It was in the upper vaginal fornices circumferentially around the cervix and then gloves were changed. Attention was turned to the patient's abdomen where a 5 mm periumbilical skin incision was made and then with the OptiScope and a 5 mm trocar, it was entered from this incision. Under direct visualization with the scope intraabdominal placement was confirmed, CO2 gas was started. Abdomen was distended until 15 mmHg pressure. . Upon inspection of the abdomen and pelvis, there were adhesions on the omentum to the anterior abdominal wall, which was slightly lower than the scope pass. Then, 2 more trocars were placed on the right and left lower quadrants, left lower quadrant was 10 mm and the right was 5 mm. A scope was placed on the left lower quadrant to visualize the adhesion better and then under direct visualization, this omental adhesion on the anterior abdominal wall was reduced with the LigaSure device and it was hemostatic. Rest of the bowels were normal. Uterus was brought up into the midline and then pictures were taken. There were also some adhesions behind the uterus and the right ovary, which also had likely a hemorrhagic cyst, possible endometrioma. The uterus was manipulated and the left round ligament was coagulated and cut with LigaSure device and left the infundibulopelvic ligament was coagulated and cut and this incision was continued until the broad ligament. It was also coagulated and cut and the anterior leaf of broad ligament was coagulated and cut and then the bladder was reduced partially on the left side. The uterine artery on the left side was skeletonized. Then, attention was turned to the right side, right round ligament was coagulated and cut and the right infundibulopelvic ligament was coagulated and cut and this was continued until the broad ligament. There were some adhesions behind the right ovary and the cul-de-sac. Attention was made not to touch the bowels there. Then, anterior leaf of the broad ligament was coagulated and cut and bladder was reduced. The pubovesical fascia was visualized to be white and shiny, and extra tissues between the bladder and the lower uterine segment were also coagulated and cut, and the bladder was reduced completely and the right uterine artery was identified, coagulated 3 times and then cut. Then, attention was turned to the left uterine artery which was also coagulated 3 times on the upper and lower levels and then cut and then extra tissues around the cervix were coagulated and cut with LigaSure device until we feel the edge of the VCare cup from the vagina and some of the adhesions behind the uterus was reduced gently and then from the anterior vaginal mucosa, a hook was used to incise the vagina. We were able to see the green edge of the VCare cup from vagina. This incision was continued circumferentially around the cervix and uterus was manipulated towards anterior and posterior, cul-de-sac was visualized. Some of the adhesions were reduced, irrigated and suctioned multiple times. The vaginal mucosa was coagulated and cut with the hook on the tip of the LigaSure device and the uterus was detached completely. Uterus was delivered from vagina without difficulty including the bilateral ovaries and tubes as well as a fibroid on the top of the uterus. Then, the pelvis was irrigated with warm normal saline and suctioned. Cuff was hemostatic. From the 11 mm trocar, an EndoStitch was introduced. Vaginal cuff was closed with EndoStitch with absorbable suture starting from left corner and then come to the right corner and then returned back into the middle of the vaginal cuff and then Lapra-Tys were placed for laparoscopic ties/knots. Again, pelvis was irrigated with warm normal saline and suctioned. Bowels were irrigated with normal saline and suctioned and inspected and noted to be hemostatic. The upper abdomen, bowel surfaces were normal. Then, the vaginal cuff was covered with FloSeal to prevent oozing in the future and the patient was given IV methylene blue. Attention was turned for cystoscopy. A cystoscopy was introduced from urethra, urethral canal was normal and then bladder was visualized to be intact and normal and then both ureters were visualized and they were found to be ejecting urine bilaterally. The cystoscopy was ended. The bladder was drained and another sterile catheter was placed into the bladder. Then gloves were changed and then the trocars were removed from the patient's abdomen. CO2 gas was emptied and the left 11 mm incision in the fascia was repaired with 0 Vicryl and the skin incisions were closed with 4-0 Monocryl in a subcuticular fashion. The procedure was ended. She was cleaned, dried, taken out from lithotomy position. She was extubated successfully. She tolerated the procedure well. She was taken to recovery room in stable condition. No complications happened. I and Dr. Damon and our PA were present during the whole procedure. She received 3 grams of cefazolin before surgery. I attest to the content of the Intraoperative Record and any orders documented therein. Any exceptions are noted below. MTDD
[2019-06-08] MEDS: CEFAZOLIN 3,000 MG in DEXTROSE 5% 50 ML IV SCH (03:51)
[2019-06-08] MEDS: IBUPROFEN 600 MG TAB PO PRN ×2 (04:48→09:26)
[2019-06-08] MEDS: SIMETHICONE 80 MG CHEW PO SCH (04:48)
[2019-06-08] MEDS: OXYCODONE/ACETAMINOPHEN 5mg/325mg TAB PO PRN ×2 (04:49→09:27)
[2019-06-08 07:00] LABS: Basophils # (auto) 0.01 K/uL (0-0.2); Basophils % (auto) 0.1 %; Eosinophils # (auto) 0.01 K/uL (0-0.5); Eosinophils % (auto) 0.1 %; Hematocrit (blood only) 33.4 % (37-47); Hemoglobin 10.8 g/dL (12.0-16.0); Immature Granulocytes # (auto) 0.03 K/uL (0.00-0.02); Immature Granulocytes % (auto) 0.3 %; Lymphocytes % (auto) 17.2 %; Mean Corpuscular Hgb Conc 32.3 g/dL (32-36); Mean Corpuscular Volume 86.5 fL (80-100); Mean Platelet Volume 11.4 fL (7.4-10.4); Monocytes # (auto) 0.73 K/uL (0.11-0.59); Monocytes % (auto) 7.9 %; Neutrophils % (auto) 74.4 %; Platelet Count 226 K/uL (130-400); RDW Coefficient of Variation 14.6 % (11.5-14.5); RDW Standard Deviation 46.1 fL (36.4-46.3); Red Blood Count 3.86 M/uL (4.2-5.4); White Blood Count 9.28 K/uL (4.8-10.8)
[2019-06-08] MEDS: DOCUSATE SODIUM 100 MG CAP PO SCH (08:15)
[2019-06-08] MEDS: LISINOPRIL 10 MG TAB PO SCH ×2 (08:16→10:36)
[2019-06-08] MEDS ORDERED: hydroCHLOROthiazide 25 MG TAB PO SCH (09:00)
[2019-06-08] MEDS ORDERED: PANTOprazole 40 MG TAB PO SCH (09:00)
[2019-06-08] MEDS ORDERED: LORATADINE 10 MG TAB PO SCH (09:00)
--- NOTE | 2019-06-08 09:29 | Obstetrical Progress Note ---
Date of Service June 08, 2019 Subjective Patient is seen and examined. She feels well, no complaints. Pain is under control with oral meds. Ambulating without dizziness Voiding without difficulty Tolerating regular diet with out N&V Flatus neg BM neg Bleeding is minimal No fever/ chills/ CP/ SOB/ N&V/ Leg pain Vital Signs Temp Pulse Pulse Resp BP Pulse Ox 06/08/19 08:15 36.7 C 82 16 105/71 95 06/08/19 03:55 36.6 C 91 H 16 99/65 L 93 06/07/19 23:10 36.7 C 96 H 18 102/65 95 06/07/19 19:40 36.9 C 98 H 16 107/69 94 06/07/19 16:05 36.7 C 75 18 122/81 99 06/07/19 14:00 36.5 C 84 16 123/80 99 06/07/19 13:00 36.4 C L 78 16 116/72 97 06/07/19 12:35 36.5 C 77 16 114/72 95 06/07/19 12:15 36.7 C 67 16 117/71 06/07/19 11:45 75 12 124/67 100 06/07/19 11:41 36.4 C L 66 14 118/67 95 06/07/19 11:25 73 14 108/69 96 06/07/19 11:15 71 14 116/63 100 06/07/19 11:05 65 16 123/70 100 06/07/19 10:55 36.2 C L 77 16 124/73 100 Intake and Output 06/07/19 06/08/19 06/08/19 22:59 06:59 14:59 Intake Total 72.5 / 2710.0 637.5 / 2710.0 Output Total 45 / 1305 850 / 1305 125 / 125 Balance 27.5 / 1405.0 -212.5 / 1405.0 -125 / -125 Intake: IV 72.5 / 310.0 137.5 / 310.0 Ancef 3,000 mg In D5w 50 ml @ 72.5 / 145.0 72.5 / 145.0 130 mls/hr IV Q8H [facility] Rx#: [id number] Ancef 3000MG 65 ml @ 130 mls/hr 65 / 65 IV PREOP [facility] Rx#:[id number] Oral 500 / 500 Output: Urine 125 / 125 Urine Amount (Catheter) 1204 850 / 1205 Traore/Indwelling 1204 850 / 1205 06/08/19 06/07/19 Range/Units 06:41 06:06 WBC 9.28 (4.8-10.8) K/uL RBC 3.86 L (4.2-5.4) M/uL Hgb 10.8 L (12.0-16.0) g/dL Hct 33.4 L (37-47) % MCV 86.5 (80-100) fL MCH 28.0 (25-34) pg MCHC 32.3 (32-36) g/dL RDW Std Deviation 46.1 (36.4-46.3) fL RDW Coeff of Vivian 14.6 H (11.5-14.5) % Plt Count 226 (130-400) K/uL MPV 11.4 H (7.4-10.4) fL Immature Gran % (Auto) 0.3 % Neut % (Auto) 74.4 % Lymph % (Auto) 17.2 % Banner % (Auto) 7.9 % Eos % (Auto) 0.1 % Baso % (Auto) 0.1 % Immature Gran # (Auto) 0.03 H (0.00-0.02) K/uL Neut # (Auto) 6.90 H (1.4-6.5) K/uL Lymph # (Auto) 1.60 (1.2-3.4) K/uL Banner # (Auto) 0.73 H (0.11-0.59) K/uL Eos # (Auto) 0.01 (0-0.5) K/uL Baso # (Auto) 0.01 (0-0.2) K/uL POC Ur Test NEG (NEG) PE: General: Alert, orientedx3, NAD CVS: S1S2 RRR Lungs; CTAB Abd: soft, NT, ND, BS+, incisions C/D/I Incision: Clean, dry, intact No VB Ext; NT, no edema AP: 49 yo s/p EUA, TLH, PEPE, BSO, Cystoscopy, pod#1 VSS Afebrile doing well Continue routine postop care Encourage ambulation, PO intake Discussed when to call All questions were answered D/C home after passing gas Results & Data Vital Signs (Past 12 Hours) Vital Signs Temp Pulse Resp BP Pulse Ox 06/08/19 08:15 36.7 C 82 16 105/71 95 06/08/19 03:55 36.6 C 91 H 16 99/65 L 93 06/07/19 23:10 36.7 C 96 H 18 102/65 95
--- NOTE | 2019-06-11 15:08 | Discharge Summary ---
DETAILS OF ADMISSION: The patient is a 49-year-old G2, P2-0-0-2 female with enlarged fibroid uterus, pelvic pain and desired definitive surgery, hysterectomy. She was admitted on 05/28/2019 for scheduled exam under anesthesia, laparoscopic total hysterectomy with bilateral salpingo-oophorectomy, lysis of adhesions and cystoscopy. See dictated OP note for details. Her surgery was uncomplicated. On postop period, she was doing well. Vital signs stable, afebrile. Urine output was good. She ambulated and tolerated clears and then regular diet without nausea or vomiting. Her abdomen was soft, nontender, ND, Incisions were clean, dry and intact. No vaginal bleeding. She was observed overnight. On postop day #1, on June 08, the patient was doing well, ambulating, tolerating regular diet, voiding without difficulty. She was passing gas. Bleeding was only spotting. She had no symptoms of fever, chills, chest pain, shortness of breath or leg pain. Vital signs stable, afebrile. Her H and H was 10.8/33.4 and her physical exam was unremarkable. Abdomen is soft, nontender. Incisions were clean, dry and intact. No vaginal bleeding noted. After she passed gas, she was discharged home on postop day #1. Discharge instructions were given when to call. Prescriptions were written for pain and nausea. She is to be seen in the office in a week. AALIYAH
== END 2019-06-08 11:30 | disposition home or self-care (01) ==
LOC: ASU 05:44 → 4S2 05:44